=== PATIENT | male | born 1990 | race American Indian/Alaskan Native ===

== ENCOUNTER 2019-06-17 06:23 | Emergency (ER) | payer SELFPAY ==
[2019-06-17 06:36] VITALS: BP 130/69
--- NOTE | 2019-06-17 08:16 | Emergency Department Report ---
Chief Complaint: Urogenital-Male Stated Complaint: STD Time Seen by Provider: 06/17/19 07:49 - HPI History of Present Illness: 2 days of burning with urination - ROS Review of Systems: He denies fever chills abdominal pain no penile discharge no penile pain - Exam Vital Signs: Vital Signs 06/17/19 06:28 Temperature 97.3 F L Pulse Rate 84 Respiratory 16 Rate Blood Pressure 130/69 O2 Sat by Pulse 100 Oximetry Physical Exam: Patient alert and oriented 3 respirations easy and nonlabored skin warm dry and intact amateur with steady gait stable vital signs MSE screening note: Focused history and physical exam performed. Due to findings the following was ordered: 28-year-old male seeking STD screening she has a 2 day complaint of irritation when urinating. He denies penile discharge she denies penile pain no other complaints or symptoms. Patient instructed to follow up with [facility] his PCP or other STD clinics. ED Medical Decision Making - Medical Decision Making 28-year-old male presents to the ER for STD screen screening he is complaining about irritation when he urinates. He denies any penile discharge he denies any penile pain currently. Discussed with patient our policy on STD screening. Instruck follow-up with his primary care doctor or [facility] or Dr. Martin Pabon Or any other STD clinic ED Disposition for MSE Clinical Impression: Concern about STD in male without diagnosis Disposition: Z-07 MED SCREENING EXAM-LEFT Is pt being admited?: No Does the pt Need Aspirin: No Condition: Stable Instructions: Sexually Transmitted Diseases (ED) Additional Instructions: Instruct patient to follow up at [facility] or other STD clinic or PCP. Offered the pamphlet with information about [facility] pt refused states he will go somewhere else. Pt walked out Time of Disposition: 08:16
== END 2019-06-17 08:16 | disposition left against medical advice (07) ==
LOC: ED 06:23
DX: R30.9 Painful micturition, unspecified (principal); Z11.3 Encounter for screening for infections with a predominantly sexual mode of transmission
CPT/HCPCS: 99281